=== PATIENT | male | born 1980 | race Two or more races ===

== ENCOUNTER 2019-01-05 23:40 | Day surgery (SDC) | payer MEDICAID ==
[~2019-01-05] VITALS: Ht 180.3 cm; Wt 68.1 kg
--- NOTE | 2019-01-05 23:48 | NUR ---
Pt ambulated to room with EDT.
--- NOTE | 2019-01-05 23:55 | NUR ---
Dr. Hanna at bedside to evaluate pt. Tip of pt's left 5th digit is missing.
[2019-01-05] MEDS ORDERED: LIDOCAINE-MPF 1%, 5ML ONE (23:59)
[2019-01-06] MEDS ORDERED: HYDROcodone/APAP 5/325 TABLET PO ONE
[2019-01-06] MEDS ORDERED: LIDOCAINE-MPF 1%, 5ML INFIL ONE
[2019-01-06] MEDS ORDERED: HYDROcodone/APAP 5/325 TABLET ONE (00:05)
[2019-01-06] MEDS ORDERED: DIPH,PERTUSS(ACELL),TET VAC/PF 0.5 ML IM-VACC ONE ×2 (00:06)
--- NOTE | 2019-01-06 00:18 | NUR ---
Pt ambulated to XR with tech.
--- NOTE | 2019-01-06 00:22 | NUR ---
Pt back to room from imaging.
[2019-01-06] MEDS ORDERED: CEFAZOLIN PMX 1GM/50ML 50 ML IV ONE (00:30)
[2019-01-06] MEDS ORDERED: CEFAZOLIN PMX 1GM/50ML 50 ML ONE (00:44)
--- NOTE | 2019-01-06 00:50 | NUR ---
IV ABX started.
--- NOTE | 2019-01-06 00:55 | NUR ---
New IV started, old IV d/c'd.
[2019-01-06] MEDS ORDERED: NALOXONE 0.4 MG/ML, 1ML IVPush PRN (01:00)
[2019-01-06] MEDS ORDERED: MORPHINE SULFATE 4 MG/ML, 1ML IVPush PRN (01:00)
[2019-01-06] MEDS ORDERED: SODIUM CHLORIDE FLUSH 10ML SYR IVF PRN (01:00)
[2019-01-06] MEDS ORDERED: ONDANSETRON 2MG/ML, 2ML IVPush PRN ×2 (01:00→08:00)
--- NOTE | 2019-01-06 01:02 | NUR ---
Dr. Hanna at bedside to discuss ED findings and POC.
--- NOTE | 2019-01-06 01:08 | NUR ---
Pt's girlfriend, Regina, phone number: .
[2019-01-06] MEDS ORDERED: ONDANSETRON 2MG/ML, 2ML ONE ×2 (01:27→11:15)
[2019-01-06] MEDS ORDERED: MORPHINE SULFATE 4 MG/ML, 1ML ONE (01:28)
[2019-01-06] MEDS ORDERED: MORPHINE SULFATE 4 MG/ML, 1ML IVPush ONE (01:30)
--- NOTE | 2019-01-06 01:35 | NUR ---
Pt medicated per MAR.
--- NOTE | 2019-01-06 01:51 | NUR ---
Telephone SBAR report given to floor RN.
[2019-01-06 02:03] VITALS: BP 143/91
[2019-01-06] MEDS ORDERED: FENTANYL PF 100 MCG/2ML ONE (07:01)
[2019-01-06] MEDS ORDERED: PROCHLORPERAZINE 5 MG/ML, 2ML IV PRN (07:30)
[2019-01-06] MEDS ORDERED: METOPROLOL 1 MG/ML, 5ML IV PRN (07:30)
[2019-01-06] MEDS ORDERED: HYDROmorphone 2 MG/ML, 1ML IVPush PRN (07:30)
[2019-01-06] MEDS ORDERED: PROMETHAZINE 25 MG/ML, 1ML IV PRN (07:30)
[2019-01-06] MEDS ORDERED: LABETALOL 5MG/ML, 20ML IV PRN (07:30)
[2019-01-06] MEDS ORDERED: DIPHENHYDRAMINE 50 MG/ML, 1ML IVPush PRN (07:30)
[2019-01-06] MEDS ORDERED: OXYcodone 5 MG/5 ML ORAL.SOL UDC PO PRN ×2 (07:30→08:30)
[2019-01-06] MEDS ORDERED: MEPERIDINE/PF 25MG/0.5ML IVPush PRN (07:30)
[2019-01-06] MEDS ORDERED: FENTANYL PF 100 MCG/2ML IV PRN (07:30)
[2019-01-06] MEDS ORDERED: hydrALAzine 20 MG/ML, 1ML IV PRN (07:30)
[2019-01-06] MEDS ORDERED: HALOPERIDOL 5 MG/ML IV PRN (07:30)
[2019-01-06] MEDS ORDERED: BUPIVACAINE/PF 0.5% ONE (07:35)
[2019-01-06] MEDS ORDERED: BUPIVACAINE/PF 0.5% INFIL ONE (07:37)
[2019-01-06] MEDS ORDERED: CEFAZOLIN PMX 1GM/50ML 50 ML IV SCH (08:00)
[2019-01-06] MEDS ORDERED: HYDROcodone/APAP 5/325 TABLET PO PRN (08:00)
[2019-01-06] MEDS ORDERED: OXYcodone 5 MG/5 ML ORAL.SOL UDC ONE (08:02)
[2019-01-06 08:35] VITALS: BP 143/88
[2019-01-06] MEDS ORDERED: CEFAZOLIN 1,000 MG ONE (11:15)
[2019-01-06] MEDS ORDERED: PROPOFOL 10 MG/ML, 20ML ONE (11:15)
[2019-01-06] MEDS ORDERED: DEXAMETHASONE 4 MG/ML, 1ML ONE (11:15)
[2019-01-06 11:25] VITALS: BP 126/78
[2019-01-06] MEDS ORDERED: AMOX1TAB64 PO (11:41)
[2019-01-06] MEDS ORDERED: TRAM50TA2 PO (11:42)
== END 2019-01-06 12:00 | disposition home or self-care (01) ==
LOC: ED 01-06 01:07 → OUT 01-06 01:08 → UNDOADMIN 01-06 01:08 → EDIP 01-06 01:08 → 4NOR 01-06 01:57 → UNDODISIN 01-06 12:00 → OUT 01-06 12:00
PROVIDERS: ATTEND Emergency Medicine
DX: S68.127A Partial traumatic metacarpophalangeal amputation of left little finger, initial encounter (principal); Z23 Encounter for immunization; F17.210 Nicotine dependence, cigarettes, uncomplicated; F15.10 Other stimulant abuse, uncomplicated; Y04.1XXA Assault by human bite, initial encounter; Y93.89 Activity, other specified; Y92.89 Other specified places as the place of occurrence of the external cause; Y99.8 Other external cause status; Z72.89 Other problems related to lifestyle
CPT/HCPCS: 26236; 73140; 90471; 90715; 99285; J0690; J1100; J2270; J2405; J2704; J3010; G0378

== ENCOUNTER 2020-02-12 17:57 | Emergency (ER) | payer SELFPAY ==
[~2020-02-12] VITALS: Ht 180.3 cm; Wt 68.5 kg
[~2020-02-12 17:57] MED LIST: AMOX1TAB64 PO; TRAM50TA2 PO
[2020-02-12 18:10] VITALS: BP 119/62
--- NOTE | 2020-02-12 18:44 | NUR ---
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 STEADY UPON AMBULATION.
[2020-02-12] MEDS ORDERED: ACETAMINOPHEN 500 MG TABLET ONE (19:22)
[2020-02-12] MEDS ORDERED: IBUPROFEN 600 MG TABLET ONE (19:22)
[2020-02-12] MEDS ORDERED: IBUPROFEN 600 MG TABLET PO ONE (19:30)
[2020-02-12] MEDS ORDERED: ACETAMINOPHEN 500 MG TABLET PO ONE (19:30)
== END 2020-02-12 19:31 | disposition home or self-care (01) ==
LOC: ED 19:17
DX: K08.89 Other specified disorders of teeth and supporting structures (principal)
CPT/HCPCS: 99283

== ENCOUNTER 2020-02-14 11:48 | Emergency (ER) | payer SELFPAY ==
[~2020-02-14] VITALS: Ht 180.3 cm; Wt 68.4 kg
--- NOTE | 2020-02-14 12:21 | NUR ---
DAX SHAFER NOW BS FOR EXAM. C/O RT UPPER AND LT LOWER DENTAL PAIN. SWELLING NOTED TO LT JAW. WAS SEEN IN ED ON 02/12/20; REPORTS UNABLE TO FILL PRESCRIPTIONS. TOOK OTC PAIN MED TODAY. SPEECH CLEAR, RESP UNLABORED.
[2020-02-14 12:28] VITALS: BP 129/83
[2020-02-14] MEDS ORDERED: KETOROLAC 30 MG/1 ML IM ONE (12:30)
[2020-02-14] MEDS ORDERED: KETOROLAC 30 MG/1 ML ONE (12:38)
--- NOTE | 2020-02-14 12:49 | NUR ---
PT MEDICATED PER EMAR.
== END 2020-02-14 13:05 | disposition home or self-care (01) ==
LOC: ED 12:41
DX: K08.89 Other specified disorders of teeth and supporting structures (principal)
CPT/HCPCS: 96372; 99283; J1885